=== PATIENT | female | born 1950 | race Caucasian/White ===

== ENCOUNTER 2023-08-15 16:20 | Emergency (ER) | payer MEDICARE, BC ==
[~2023-08-15] VITALS: Ht 162.6 cm; Wt 62.6 kg
[2023-08-15] MEDS ORDERED: ACETAMINOPHEN ES 500 MG TABLET PO ONE (17:00)
[2023-08-15] MEDS ORDERED: ACETAMINOPHEN ES 500 MG TABLET ONE (17:33)
[2023-08-15 18:26] VITALS: BP 142/75; TEMP 98.2; O2SAT 100
== END 2023-08-15 18:23 | disposition home or self-care (01) ==
LOC: ER 16:22
DX: S00.93XA Contusion of unspecified part of head, initial encounter (principal); M79.641 Pain in right hand; Z88.0 Allergy status to penicillin; W01.0XXA Fall on same level from slipping, tripping and stumbling without subsequent striking against object, initial encounter; Y93.89 Activity, other specified; Y92.89 Other specified places as the place of occurrence of the external cause; Y99.8 Other external cause status
CPT/HCPCS: 70450-TC; 73130-TC